=== PATIENT | female | born 1995 | race Caucasian/White ===

== ENCOUNTER 2016-06-25 19:39 | Emergency (ER) | payer SELFPAY ==
--- NOTE | 2016-06-25 19:53 | Emergency Department Record ---
History of Present Illness - General Chief complaint: ENT Stated complaint: ST/HEADACHE Time Seen by Provider: 06/25/16 19:45 Source: Patient Mode of Arrival: Ambulatory Limitations: No limitations - History of Present Illness Initial comments: 20 yo female presents to ED with a CC of sore throat symptoms that began earlier today. Patient denies fevers, chills, nausea, or vomiting symptoms. Patient does report mild headache symptoms as well, denies neck stiffness. Patient denies health problems at her baseline. MD complaint: Sore throat Onset/Timin -: Days(s) Location: L ear, Throat Severity: Mild Severity scale (1-10): 6 Quality: Other Consistency: Constant Improves with: None Worsens with: None Associated Symptoms: Sore throat - Related Data Previous Rx's Medication Instructions Recorded Amoxicillin 500 mg PO TID #30 capsule 06/25/16 Allergies Allergy/AdvReac Type Severity Reaction Status Date / Time No Known Drug Allergies Allergy Unverified 06/17/16 16:36 Travel Screening - Travel/Exposure Within Last 30 Days Have you traveled within the last 30 days?: No - Travel/Exposure Within Last Year Have you traveled outside the [place] in the last year?: No - Additonal Travel Details Have you been exposed to anyone with a communicable illness?: No - Travel Symptoms Symptom Screening: None Review of Systems Constitutional: Denies: Chills, Fever, Malaise, Night sweats Eyes: Denies: Eye discharge, Eye pain ENT: Reports: Throat pain. Denies: Congestion, Ear pain, Epistaxis Respiratory: Denies: Cough, Dyspnea Cardiovascular: Denies: Chest pain, Dyspnea on exertion Endocrine: Denies: Fatigue, Heat or cold intolerance Gastrointestinal: Denies: Abdominal pain, Nausea, Vomiting Musculoskeletal: Denies: Arthralgia, Back pain, Gout, Joint swelling Skin: Denies: Bruising, Change in color Neurological: Reports: Headache. Denies: Abnormal gait, Confusion, Seizure Psychiatric: Denies: Anxiety Hematological/Lymphatic: Denies: Anemia, Blood Clots Past Medical History - SOCIAL HISTORY Smoking Status: Current every day smoker Alcohol Use: None Drug Use: None - RESPIRATORY Hx Respiratory Disorders: No - CARDIOVASCULAR Hx Cardio Disorders: No - NEURO Hx Neuro Disorders: No - GI Hx GI Disorders: Yes Comment:: constipation - Hx Genitourinary Disorders: Yes Comment:: PCOS - ENDOCRINE Hx Endocrine Disorders: No - MUSCULOSKELETAL Hx Musculoskeletal Disorders: No - PSYCH Hx Psych Problems: No - HEMATOLOGY/ONCOLOGY Hx Hematology/Oncology Disorders: No Family Medical History Any Significant Family History?: No Hx Diabetes: Grandparents Physical Exam - General General Appearance: Alert, Oriented x3, Cooperative, No acute distress Limitations: No limitations - Head Head exam: Atraumatic, Normocephalic, Normal inspection Head exam detail: negative: Abrasion, Contusion, Cleaning's sign, General tenderness, Hematoma, Laceration - Eye Eye exam: Normal appearance. negative: Conjunctival injection, Periorbital swelling, Periorbital tenderness, Scleral icterus - ENT Ear exam: negative: Auricular hematoma, Auricular trauma Nasal Exam: negative: Active bleeding, Discharge, Dried blood, Foreign body Mouth exam: negative: Drooling, Laceration, Muffled voice, Tongue elevation Throat exam: Tonsillar exudate. negative: Tonsillar erythema, Tonsillomegaly, R peritonsillar mass, L peritonsillar mass - Neck Neck exam: Normal inspection. negative: Meningismus, Tenderness - Respiratory Respiratory exam: Normal lung sounds bilaterally. negative: Rales, Respiratory distress, Rhonchi, Stridor - Cardiovascular Cardiovascular Exam: Regular rate, Normal rhythm, Normal heart sounds - GI/Abdominal GI/Abdominal exam: Soft. negative: Rebound, Rigid, Tenderness - Rectal Rectal exam: Deferred - exam: Deferred - Extremities Extremities exam: Normal inspection. negative: Calf tenderness, Pedal edema, Tenderness - Back Back exam: Denies: CVA tenderness (R), CVA tenderness (L) - Neurological Neurological exam: Alert, Normal gait, Oriented X3 - Psychiatric Psychiatric exam: Normal affect, Normal mood - Skin Skin exam: Normal color. negative: Abrasion Type of lesion: negative: abrasion Course Vital Signs 06/25/16 19:46 Temperature 98.6 F Pulse Rate [ 86 Pulse Ox Probe] Respiratory 18 Rate Blood Pressure 116/82 [Left Arm] Pulse Ox 98 - Reevaluation(s) Reevaluation #1: 06/25/16 20:21 Rapid strep is negative. Will prescribe delayed antibiotic to be filled in 48 hours if patient's symptoms fail to improved, and the patient appears stable for discharge at this time. Disposition Disposition: Discharge Clinical Impression: Pharyngitis Qualifiers: Pharyngitis/tonsillitis etiology: unspecified etiology Qualified Code(s): J02.9 - Acute pharyngitis, unspecified Disposition: Home, Self-Care Condition: (2) Stable Instructions: Pharyngitis (ED) Additional Instructions: Return to ED if your symptoms worsen or if you have any concerns. Amoxicillin as directed. Follow-up with your family doctor in 3-5 days as directed. Prescriptions: Amoxicillin 500 mg PO TID #30 capsule Forms: Patient Portal Access Time of Disposition: 20:23
== END 2016-06-25 20:28 | disposition home or self-care (01) ==
LOC: ER 19:39
DX: J02.9 Acute pharyngitis, unspecified (principal)
CPT/HCPCS: 87880; 99282

== ENCOUNTER 2016-07-29 21:11 | Emergency (ER) | payer SELFPAY | END 2016-07-29 22:10 | disposition left against medical advice (07) | LOC: ER 21:11 | DX: Z53.20 Procedure and treatment not carried out because of patient's decision for unspecified reasons (principal) ==

== ENCOUNTER 2016-10-24 18:19 | Emergency (ER) | payer SELFPAY ==
[2016-10-24 19:15] LABS: BASO % 0.5 % (0-6); EOS % 0.5 % (0-6); GRAN % 59.7 % (47-80); HEMATOCRIT 39.5 % (35.0-47.0); HEMOGLOBIN 14.1 gm/dl (11.6-16.0); MEAN CORPUSCULAR HEMOGLOBIN 32.1 pg (27-33); MEAN CORPUSCULAR HGB CONC 35.7 g/dl (32-36); MEAN PLATELET VOLUME 9.5 fl (7.4-10.4); MONO % 10.3 % (0-9); PLATELET COUNT 271 K/uL (130-400); RED BLOOD COUNT 4.39 M/uL (3.80-5.40); RED CELL DISTRIBUTION WIDTH 12.5 % (11.5-14.5); WHITE BLOOD COUNT W/O DIFF 8.7 K/uL (4.2-12.2)
[2016-10-24] MEDS ORDERED: ONDANSETRON HCL IV 4 MG/2 ML VIAL IV ONE (19:20)
[2016-10-24] MEDS ORDERED: 0.9 % SODIUM CHLORIDE 1,000 ML BAG IV ONE (19:20)
[2016-10-24] MEDS ORDERED: HYDROMORPHONE HCL 1MG/ML **SYRINGE IVP ONE (19:23)
[2016-10-24 19:32] LABS: ALB/GLOB RATIO 1.9 (1.1-1.8); ALBUMIN 4.9 g/dL (4.0-5.0); ALKALINE PHOSPHATASE 51 U/L (35-104); ALT/SGPT 14 U/L (<33); AST/SGOT 22 U/L (10.0-35.0); BLOOD UREA NITROGEN 19.4 mg/dL (12.6-42.6); CREATININE 0.6 mg/dL (0.5-0.9); EST GLOMERULAR FILTRATION RATE > 60 mL/min; GLUCOSE,RANDOM 86 mg/dL (74-109); TOTAL PROTEIN 7.5 g/dL (6.6-8.7)
[2016-10-24 19:33] LABS: URINE APPEARANCE CLEAR; URINE BILIRUBIN NEGATIVE (NEGATIVE); URINE BLOOD NEGATIVE (NEGATIVE); URINE COLOR YELLOW; URINE GLUCOSE (UA) NEGATIVE (NEGATIVE); URINE KETONE NEGATIVE (NEGATIVE); URINE LEUKOCYTE ESTERASE NEGATIVE (NEGATIVE); URINE NITRITE NEGATIVE (NEGATIVE); URINE PROTEIN NEGATIVE (NEGATIVE); URINE UROBILINOGEN 0.2 E.U./dL (0.20 - 1.00)
[2016-10-24 19:40] LABS: HCG,QUALITATIVE URINE NEGATIVE (NEGATIVE)
[2016-10-24] MEDS ORDERED: KETOROLAC 30 MG/ML VIAL IVP ONE (20:19)
--- NOTE | 2016-10-24 20:31 | Emergency Department Record ---
History of Present Illness - General Chief Complaint: Abdominal Pain Stated Complaint: ABDOMINAL PAIN Time Seen by Provider: 10/24/16 19:12 Source: Patient Mode of Arrival: Ambulatory Limitations: No limitations - History of Present Illness Initial Comments: pt had a sudden onset of rlq pain 45min [employer]. pt was laying in bed when it started. pt has no n/v/c/d. no uti symptoms. pain is worse with walking. MD Complaint: Abdominal pain Onset/Timin -: Minutes(s) Location: RLQ Radiation: None Migration to: No migration Severity: Severe Quality: Other Consistency: Constant Improves With: Nothing Worsens With: Movement Associated Symptoms: Nausea, Vomiting - Related Data LMP Date: 10/11/16 LMP (females 10-50): other Patient : No Allergies Allergy/AdvReac Type Severity Reaction Status Date / Time No Known Drug Allergies Allergy Verified 10/24/16 19:04 Travel Screening - Travel/Exposure Within Last 30 Days Have you traveled within the last 30 days?: No - Travel/Exposure Within Last Year Have you traveled outside the [place] in the last year?: No - Additonal Travel Details Have you been exposed to anyone with a communicable illness?: No - Travel Symptoms Symptom Screening: None Review of Systems Reviewed: No additional complaints except as noted below Constitutional: Reports: As per HPI. Denies: Chills, Fever, Malaise, Night sweats, Weakness, Weight change Eyes: Reports: As per HPI. Denies: Eye discharge, Eye pain, Photophobia, Vision change ENT: Reports: As per HPI. Denies: Congestion, Dental pain, Ear pain, Epistaxis , Hearing loss, Throat pain Respiratory: Reports: As per HPI. Denies: Cough, Dyspnea, Hemoptysis, Stridor, Wheezes Cardiovascular: Reports: As per HPI. Denies: Arrhythmia, Chest pain, Dyspnea on exertion, Edema, Murmurs, Orthopnea, Palpitations, Paroxysmal nocturnal dyspnea, Rheumatic Fever, Syncope Endocrine: Reports: As per HPI. Denies: Fatigue, Heat or cold intolerance, Polydipsia, Polyuria Gastrointestinal: Reports: As per HPI. Denies: Abdominal pain, Constipation, Diarrhea, Hematemesis, Hematochezia, Melena, Nausea, Vomiting Genitourinary: Reports: As per HPI. Denies: Abnormal menses, Discharge, Dyspareunia, Dysuria, Frequency, Hematuria, Incontinence, Retention, Urgency Musculoskeletal: Reports: As per HPI. Denies: Arthralgia, Back pain, Gout, Joint swelling, Myalgia, Neck pain Skin: Reports: As per HPI. Denies: Bruising, Change in color, Change in hair/ nails, Lesions, Pruritus, Rash Neurological: Reports: As per HPI. Denies: Abnormal gait, Confusion, Headache, Numbness, Paresthesias, Seizure, Tingling, Tremors, Vertigo, Weakness Psychiatric: Reports: As per HPI. Denies: Anxiety, Auditory hallucinations, Depression, Homicidal thoughts, Suicidal thoughts, Visual hallucinations Hematological/Lymphatic: Reports: As per HPI. Denies: Anemia, Blood Clots, Easy bleeding, Easy bruising, Swollen glands Past Medical History - SOCIAL HISTORY Smoking Status: Current every day smoker Alcohol Use: Occasional Drug Use: None - RESPIRATORY Hx Respiratory Disorders: No - CARDIOVASCULAR Hx Cardio Disorders: No - NEURO Hx Neuro Disorders: No - GI Hx GI Disorders: Yes Comment:: constipation - Hx Genitourinary Disorders: Yes Comment:: PCOS - ENDOCRINE Hx Endocrine Disorders: No - MUSCULOSKELETAL Hx Musculoskeletal Disorders: No - PSYCH Hx Psych Problems: No - HEMATOLOGY/ONCOLOGY Hx Hematology/Oncology Disorders: No Family Medical History Any Significant Family History?: No Hx Diabetes: Grandparents Physical Exam - General General Appearance: Alert, Oriented x3, Cooperative, Mild distress - Head Head exam: Normal inspection - Eye Eye exam: Normal appearance, PERRL, EOMI Pupils: Normal accommodation - ENT ENT exam: Normal exam, Mucous membranes moist, Normal external ear exam, Normal orophraynx Ear exam: Normal external inspection. negative: External canal tenderness Nasal Exam: Normal inspection. negative: Discharge, Sinus tenderness Mouth exam: Normal external inspection, Tongue normal Teeth exam: Normal inspection. negative: Dental caries Throat exam: Normal inspection. negative: Tonsillar erythema, Tonsillar exudate - Neck Neck exam: Normal inspection, Full ROM. negative: Tenderness - Respiratory Respiratory exam: Normal lung sounds bilaterally. negative: Respiratory distress - Cardiovascular Cardiovascular Exam: Regular rate, Normal rhythm, Normal heart sounds - GI/Abdominal GI/Abdominal exam: Soft, Normal bowel sounds, Tenderness - Rectal Rectal exam: Deferred - exam: Deferred - Extremities Extremities exam: Normal inspection, Full ROM, Normal capillary refill. negative: Tenderness - Back Back exam: Reports: Normal inspection, Full ROM. Denies: Muscle spasm, Rash noted, Tenderness - Neurological Neurological exam: Alert, CN II-XII intact, Normal gait, Oriented X3 - Psychiatric Psychiatric exam: Normal affect, Normal mood - Skin Skin exam: Dry, Intact, Normal color, Warm Course Vital Signs 10/24/16 10/24/16 19:00 20:18 Temperature 99.0 F Pulse Rate 96 H Pulse Rate [ 72 Pulse Ox Probe] Respiratory 20 20 Rate Blood Pressure 121/84 Blood Pressure 118/72 [Left Arm] Pulse Ox 100 98 - Reevaluation(s) Reevaluation #1: 10/24/16 23:26 pts pain is improved but still present. ct shows 3.3 x 3.2 large complex mass w mod free fluid, hemorragic cyst vs tuboovarian abscess vs torsed ovary Medical Decision Making - Lab Data Result diagrams: 10/24/16 19:08 10/24/16 19:08 Lab Results 10/24/16 10/24/16 10/24/16 Range/Units 19:08 19:08 19:13 WBC 8.7 (4.2-12.2) K/uL RBC 4.39 (3.80-5.40) M/uL Hgb 14.1 (11.6-16.0) gm/dl Hct 39.5 (35.0-47.0) % MCV 90.0 (81-97) fl MCH 32.1 (27-33) pg MCHC 35.7 (32-36) g/dl RDW 12.5 (11.5-14.5) % Plt Count 271 (130-400) K/uL MPV 9.5 (7.4-10.4) fl Gran % 59.7 (47-80) % Lymphocytes % 29.0 (16-45) % Monocytes % 10.3 H (0-9) % Eosinophils % 0.5 (0-6) % Basophils % 0.5 (0-6) % Sodium 140 (136-145) mmol/L Potassium 3.8 (3.4-4.5) mmol/L Chloride 105 (98-107) mmol/L Carbon Dioxide 23.0 (22-29) mmol/L Anion Gap 12.0 (7-16) BUN 19.4 (12.6-42.6) mg/dL Creatinine 0.6 (0.5-0.9) mg/dL Estimated GFR > 60 mL/min Random Glucose 86 (74-109) mg/dL Calcium 9.2 (8.6-10.0) mg/dL Total Bilirubin 0.50 (0.2-1.0) mg/dL AST 22 (10.0-35.0) U/L ALT 14 (<33) U/L Alkaline Phosphatase 51 (35-104) U/L Total Protein 7.5 (6.6-8.7) g/dL Albumin 4.9 (4.0-5.0) g/dL Globulin 2.6 (1.4-4.8) gm/dL Albumin/Globulin Ratio 1.9 H (1.1-1.8) Urine Color Yellow Urine Appearance Clear Urine pH 6.5 (5.0-8.0) Ur Specific Earle 1.015 (1.002-1.030) Urine Protein Negative (NEGATIVE) Urine Glucose (UA) Negative (NEGATIVE) Urine Ketones Negative (NEGATIVE) Urine Blood Negative (NEGATIVE) Urine Nitrite Negative (NEGATIVE) Urine Bilirubin Negative (NEGATIVE) Urine Urobilinogen 0.2 (0.20 - 1.00) E.U./dL Ur Leukocyte Esterase Negative (NEGATIVE) Urine HCG, Qual Negative (NEGATIVE) Disposition Disposition: Transfer Clinical Impression: Ovarian mass, right Disposition: Acute Care Hospital Transfer Transfer To: [facility] Reason For Transfer: needs emergent us to evaluate for torsed ovary vs tubovarian abscess Accepting Physician: dr philip Time Discussed w/Accepting Physician: 23:26 Forms: Patient Portal Access Quality - Quality Measures Quality Measures: N/A - Blood Pressure Screening Does Patient Have Any of the Following: No Blood Pressure Classification: Pre-Hypertensive BP Reading Systolic Measurement: 121 Diastolic Measurement: 84 Screening for High Blood Pressure: < Pre-Hypertensive BP, F/U Documented > [ G8950] Pre-Hypertensive Follow-up Interventions: Follow-up with rescreen every year.
--- NOTE | 2016-10-25 08:36 | CT SCAN REPORT ---
EXAM: CT OF THE ABDOMEN AND PELVIS WITH CONTRAST HISTORY: SEVERE LOW ABDOMINAL PAIN. TECHNIQUE: Sequential axial images were obtained from the diaphragms through the ischiorectal fossa after intravenous and oral administration of 100 ml of Omnipaque 300 contrast material. Comparison: 06/30/13. FINDINGS: The visualized lung bases appear normal. The liver, gallbladder, pancreas, and spleen appear normal. The adrenal glands and kidneys appear normal. The small and large bowel appears normal. There is a large complex cystic lesion in the expected region of the right adnexa. This measures approximately 3.3 x 3.2 cm. There is a moderate amount of surrounding fluid. There is an IUD within the endometrium. Findings may represent a large hemorrhagic cyst, however, torsed ovary or tuboovarian abscess cannot be entirely excluded. Pelvic ultrasound is recommended for better evaluation. IMPRESSION: LARGE COMPLEX CYSTIC LESION IN THE EXPECTED REGION OF THE RIGHT OVARY. THIS MEASURES 3.2 X 3.3 CM. THERE IS A MODERATE AMOUNT OF SURROUNDING FLUID. FINDINGS MAY REPRESENT A HEMORRHAGIC CYST, HOWEVER, TORSED OVARY OR TUBOOVARIAN ABSCESS CANNOT BE ENTIRELY EXCLUDED. THERE IS AN IUD WITHIN THE ENDOMETRIUM. JOB NUMBER: [id number] MTDD
== END 2016-10-24 23:40 | disposition short-term general hospital (02) ==
LOC: ER 18:19
DX: N83.201 Unspecified ovarian cyst, right side (principal); R11.2 Nausea with vomiting, unspecified; R10.31 Right lower quadrant pain
CPT/HCPCS: 99285 ×2; 96374; 96375; 96361; 85025; 80053; 81003; 81025; 74177; Q9967; J1885; J2405; J1170; J7030

== ENCOUNTER 2017-10-14 13:55 | Emergency (ER) | payer OTHER ==
[2017-10-14] MEDS ORDERED: SODIUM CHLORIDE 0.9% 500 ML IV ONE (14:45)
[2017-10-14 15:06] LABS: BASO % 0.6 % (0-6); EOS % 3.1 % (0-6); GRAN % 68.1 % (47-80); HEMATOCRIT 40.5 % (35.0-47.0); HEMOGLOBIN 13.7 gm/dl (11.6-16.0); LYMPH % 19.5 % (16-45); MEAN CELL VOLUME 93.3 fl (81-97); MEAN CORPUSCULAR HEMOGLOBIN 31.6 pg (27-33); MEAN CORPUSCULAR HGB CONC 33.8 g/dl (32-36); MEAN PLATELET VOLUME 9.7 fl (7.4-10.4); MONO % 8.7 % (0-9); PLATELET COUNT 222 K/uL (130-400); RED BLOOD COUNT 4.34 M/uL (3.80-5.40); RED CELL DISTRIBUTION WIDTH 12.7 % (11.5-14.5); WHITE BLOOD COUNT W/O DIFF 6.8 K/uL (4.2-12.2)
[2017-10-14] MEDS ORDERED: KETOROLAC 30 MG/ML VIAL IVP ONE (15:09)
[2017-10-14 15:19] LABS: BLOOD UREA NITROGEN 12 mg/dL (6-20); CREATININE 0.7 mg/dL (0.5-0.9); EST GLOMERULAR FILTRATION RATE > 60 mL/min
--- NOTE | 2017-10-14 15:21 | Emergency Department Record ---
History of Present Illness - General Chief Complaint: Abdominal Pain Stated Complaint: ABDOMINAL/BACK PAIN Time Seen by Provider: 10/14/17 14:45 Mode of Arrival: Ambulatory - History of Present Illness Onset/Timin -: Days(s) Location: LLQ Radiation: None Migration to: No migration Severity: Severe Severity scale (1-10): 8 Quality: Sharp Consistency: Constant Improves With: Nothing Worsens With: Nothing Associated Symptoms: Nausea, Vomiting - Related Data LMP Date: 09/10/17 Patient : No Previous Rx's Medication Instructions Recorded Metronidazole [Flagyl] 500 mg PO BID 7 Days #14 tablet 10/14/17 Allergies Allergy/AdvReac Type Severity Reaction Status Date / Time No Known Drug Allergies Allergy Verified 10/14/17 14:20 Travel Screening - Travel/Exposure Within Last 30 Days Have you traveled within the last 30 days?: No Past Medical History - SOCIAL HISTORY Smoking Status: Current every day smoker Alcohol Use: None Drug Use: None - RESPIRATORY Hx Respiratory Disorders: No - CARDIOVASCULAR Hx Cardio Disorders: No - NEURO Hx Neuro Disorders: No - GI Hx GI Disorders: Yes Comment:: constipation - Hx Genitourinary Disorders: Yes Comment:: PCOS - ENDOCRINE Hx Endocrine Disorders: No - MUSCULOSKELETAL Hx Musculoskeletal Disorders: No - PSYCH Hx Psych Problems: No - HEMATOLOGY/ONCOLOGY Hx Hematology/Oncology Disorders: No Family Medical History Any Significant Family History?: Yes Hx Diabetes: Grandparents Physical Exam - General General Appearance: Alert, Oriented x3, Cooperative, Mild distress - Head Head exam: Atraumatic - Eye Eye exam: Normal appearance, PERRL - ENT ENT exam: Normal exam, Mucous membranes moist, Normal external ear exam, Normal orophraynx, TM's normal bilaterally - Neck Neck exam: Normal inspection. negative: Tenderness - Respiratory Respiratory exam: Normal lung sounds bilaterally. negative: Rhonchi, Wheezes - Cardiovascular Cardiovascular Exam: Regular rate, Normal rhythm, Normal heart sounds - GI/Abdominal GI/Abdominal exam: Soft, Normal bowel sounds, Guarding, Tenderness (LLQ). negative: Rebound - exam: Adnexal tenderness (L), Cervical discharge, cervical motion tenderness , Vaginal discharge. negative: Abnormal external exam, Adnexal mass (L), Adnexal mass (R), Adnexal tenderness (R), Vaginal bleeding - Extremities Extremities exam: Normal inspection. negative: Tenderness - Back Back exam: Reports: Normal inspection - Neurological Neurological exam: Alert, Normal gait, Oriented X3 - Psychiatric Psychiatric exam: Normal affect, Normal mood - Skin Skin exam: Normal color. negative: Rash Course Vital Signs 10/14/17 14:17 Temperature 98.2 F Pulse Rate 51 L Respiratory 20 Rate Blood Pressure 111/70 Pulse Ox 100 - Reevaluation(s) Reevaluation #1: 10/14/17 17:17 US neg for ovarian pathology. Pelvic with discharge and CMT. IM rocephine and po Zithro in ED. Home on Flagyl for Clue cells/BV Medical Decision Making - Lab Data Result diagrams: 10/14/17 15:00 10/14/17 15:00 Lab Results 10/14/17 10/14/17 Range/Units 15:00 15:00 WBC 6.8 (4.2-12.2) K/uL RBC 4.34 (3.80-5.40) M/uL Hgb 13.7 (11.6-16.0) gm/dl Hct 40.5 (35.0-47.0) % MCV 93.3 (81-97) fl MCH 31.6 (27-33) pg MCHC 33.8 (32-36) g/dl RDW 12.7 (11.5-14.5) % Plt Count 222 (130-400) K/uL MPV 9.7 (7.4-10.4) fl Gran % 68.1 (47-80) % Lymphocytes % 19.5 (16-45) % Monocytes % 8.7 (0-9) % Eosinophils % 3.1 (0-6) % Basophils % 0.6 (0-6) % Urine HCG, Qual Negative (NEGATIVE) Disposition Disposition: Discharge Clinical Impression: Pelvic pain, Bacterial vaginosis, Cervicitis Disposition: Home, Self-Care Condition: (1) Good Instructions: Cervicitis (ED), Sexually Transmitted Diseases (ED) Additional Instructions: Condoms with all contacts. Prescriptions: Metronidazole [Flagyl] 500 mg PO BID 7 Days #14 tablet Forms: Patient Portal Access Quality - Quality Measures Quality Measures: N/A - Blood Pressure Screening Does Patient Have Any of the Following: No Blood Pressure Classification: Normal BP Reading Systolic Measurement: 111 Diastolic Measurement: 70 Screening for High Blood Pressure: < Normal BP, F/U Not Required > [G3508]
[2017-10-14 15:22] LABS: GLUCOSE,RANDOM 88 mg/dL (74-109)
[2017-10-14] MEDS ORDERED: AZITHROMYCIN 500 MG TABLET PO ONE (17:16)
[2017-10-14] MEDS ORDERED: CEFTRIAXONE 250 MG VIAL IM ONE (17:16)
[2017-10-14] MEDS ORDERED: HYDROCODONE/APAP 5/325MG TABLET PO ONE (17:16)
[2017-10-16 00:44] LABS: GC SPECIMEN TYPE Vaginal
--- NOTE | 2017-10-17 09:29 | ULTRASOUND REPORT ---
EXAM: PELVIC ULTRASOUND WITH TRANSVAGINAL HISTORY: LEFT SIDED PELVIC PAIN SINCE YESTERDAY. PREVIOUS HISTORY OF OVARIAN CYSTS. TECHNIQUE: Sonographic evaluation of the pelvis was performed using transabdominal and transvaginal probes. Comparison: Previous CT scan of the abdomen and pelvis dated 10/24/16. FINDINGS: TRANSABDOMINAL PELVIC ULTRASOUND: The uterus is anteverted in position and normal in size measuring 7.6 x 3 x 3.9 cm. The endometrium is normal measuring 5 mm. The myometrium is unremarkable. The right ovary is normal in appearance and size measuring 2.8 x 1.5 x 1.6 cm. The left ovary measures 3.9 x 1.8 x 3.3 cm. A small amount of free fluid is present within the pelvis adjacent to the left ovary. Mild free fluid is also present within the posterior cul-de-sac and just superior to the uterus. TRANSVAGINAL PELVIC ULTRASOUND: There is a tiny amount of nonspecific fluid within the endocervical canal. The endometrium is normal measuring 6 mm. The myometrium is unremarkable. There are multiple small follicles within both ovaries. The right ovary measures 3.5 x 1.6 x 2.7 cm and the left ovary measures 3.4 x 1.6 x 3.1 cm. There is no dominant follicle or ovarian mass. A small amount of free fluid is present within the pelvis. Duplex Doppler ultrasound was performed to assess for ovarian torsion. Color Doppler images demonstrate symmetric flow within both ovaries. Intraovarian spectral venous and arterial waveforms of both ovaries demonstrate symmetric flow with unremarkable uncorrected velocities. There is no ovarian torsion. IMPRESSION: 1. NORMAL UTERUS AND OVARIES. SEVERAL SMALL FUNCTIONAL FOLLICLES ARE PRESENT WITHIN EACH OVARY. 2. NO TORSION. 3. FREE FLUID WITHIN THE POSTERIOR CUL-DE-SAC WHICH IS LIKELY PHYSIOLOGIC. JOB NUMBER: [id number] [facility]
== END 2017-10-14 17:48 | disposition home or self-care (01) ==
LOC: ER 13:55
DX: N76.0 Acute vaginitis (principal); R11.2 Nausea with vomiting, unspecified; R10.2 Pelvic and perineal pain; F17.210 Nicotine dependence, cigarettes, uncomplicated
CPT/HCPCS: 99284 ×2; 96374; 96372; 96361; 85025; 80048; 81025; 76856; 76830; Q0111; J1885; J0696; 87210

== ENCOUNTER 2017-12-29 16:27 | Emergency (ER) | payer OTHER ==
[2017-12-29 17:19] LABS: BASO % 0.7 % (0-6); GRAN % 56.1 % (47-80); HEMATOCRIT 37.5 % (35.0-47.0); HEMOGLOBIN 12.8 gm/dl (11.6-16.0); MEAN CELL VOLUME 92.4 fl (81-97); MEAN CORPUSCULAR HEMOGLOBIN 31.5 pg (27-33); MEAN CORPUSCULAR HGB CONC 34.1 g/dl (32-36); MONO % 7.2 % (0-9); PLATELET COUNT 238 K/uL (130-400); RED BLOOD COUNT 4.06 M/uL (3.80-5.40)
[2017-12-29 17:21] LABS: URINE APPEARANCE CLEAR; URINE BILIRUBIN NEGATIVE (NEGATIVE); URINE BLOOD NEGATIVE (NEGATIVE); URINE COLOR YELLOW; URINE GLUCOSE (UA) NEGATIVE (NEGATIVE); URINE KETONE NEGATIVE (NEGATIVE); URINE LEUKOCYTE ESTERASE NEGATIVE (NEGATIVE); URINE NITRITE NEGATIVE (NEGATIVE); URINE PROTEIN NEGATIVE (NEGATIVE); URINE UROBILINOGEN 0.2 E.U./dL (0.20 - 1.00)
[2017-12-29 17:27] LABS: BLOOD UREA NITROGEN 10 mg/dL (6-20); CREATININE 0.7 mg/dL (0.5-0.9); EST GLOMERULAR FILTRATION RATE > 60 mL/min
[2017-12-29 17:30] LABS: GLUCOSE,RANDOM 84 mg/dL (74-109)
[2017-12-29] MEDS ORDERED: KETOROLAC 30 MG/ML VIAL IVP ONE (17:46)
--- NOTE | 2017-12-29 17:46 | Emergency Department Record ---
History of Present Illness - General Chief Complaint: Abdominal Pain Stated Complaint: PELVIC PAIN Time Seen by Provider: 12/29/17 16:55 Source: Patient Mode of Arrival: Ambulatory Limitations: No limitations - History of Present Illness Initial Comments: pt was at work working on a truck when someone slammed the door of the truck on her lower abd/pelvis. she is having pain in her pelvis and lower abdomen MD Complaint: Other (pelvic pain) Onset/Timin -: Hour(s) Location: Suprapubic Radiation: None Severity: Severe Severity scale (1-10): 10 Quality: Sharp Consistency: Constant Improves With: Nothing Worsens With: Nothing Associated Symptoms: Denies other symptoms - Related Data LMP (females 10-50): 1 month ago Patient : No Home Medications Medication Instructions Recorded Confirmed Last Taken No Home Med [NO HOME MEDS] 12/29/17 12/29/17 Unknown Allergies Allergy/AdvReac Type Severity Reaction Status Date / Time No Known Drug Allergies Allergy Verified 12/29/17 16:50 Travel Screening - Travel/Exposure Within Last 30 Days Have you traveled within the last 30 days?: No Review of Systems Reviewed: No additional complaints except as noted below Constitutional: Reports: As per HPI. Denies: Chills, Fever, Malaise, Night sweats, Weakness, Weight change Eyes: Reports: As per HPI. Denies: Eye discharge, Eye pain, Photophobia, Vision change ENT: Reports: As per HPI. Denies: Congestion, Dental pain, Ear pain, Epistaxis , Hearing loss, Throat pain Respiratory: Reports: As per HPI. Denies: Cough, Dyspnea, Hemoptysis, Stridor, Wheezes Cardiovascular: Reports: As per HPI. Denies: Arrhythmia, Chest pain, Dyspnea on exertion, Edema, Murmurs, Orthopnea, Palpitations, Paroxysmal nocturnal dyspnea, Rheumatic Fever, Syncope Endocrine: Reports: As per HPI. Denies: Fatigue, Heat or cold intolerance, Polydipsia, Polyuria Gastrointestinal: Reports: As per HPI, Abdominal pain. Denies: Constipation, Diarrhea, Hematemesis, Hematochezia, Melena, Nausea, Vomiting Genitourinary: Reports: As per HPI. Denies: Abnormal menses, Discharge, Dyspareunia, Dysuria, Frequency, Hematuria, Incontinence, Retention, Urgency Musculoskeletal: Reports: As per HPI, Other. Denies: Arthralgia, Back pain, Gout, Joint swelling, Myalgia, Neck pain Skin: Reports: As per HPI. Denies: Bruising, Change in color, Change in hair/ nails, Lesions, Pruritus, Rash Neurological: Reports: As per HPI. Denies: Abnormal gait, Confusion, Headache, Numbness, Paresthesias, Seizure, Tingling, Tremors, Vertigo, Weakness Psychiatric: Reports: As per HPI. Denies: Anxiety, Auditory hallucinations, Depression, Homicidal thoughts, Suicidal thoughts, Visual hallucinations Hematological/Lymphatic: Reports: As per HPI. Denies: Anemia, Blood Clots, Easy bleeding, Easy bruising, Swollen glands Past Medical History - SOCIAL HISTORY Smoking Status: Current every day smoker Alcohol Use: Occasional Drug Use: None - RESPIRATORY Hx Respiratory Disorders: No - CARDIOVASCULAR Hx Cardio Disorders: No - NEURO Hx Neuro Disorders: No - GI Hx GI Disorders: Yes Comment:: constipation - Hx Genitourinary Disorders: Yes Comment:: PCOS - ENDOCRINE Hx Endocrine Disorders: No - MUSCULOSKELETAL Hx Musculoskeletal Disorders: No - PSYCH Hx Psych Problems: No - HEMATOLOGY/ONCOLOGY Hx Hematology/Oncology Disorders: No Family Medical History Any Significant Family History?: Yes Hx Diabetes: Grandparents Physical Exam - General General Appearance: Alert, Oriented x3, Cooperative, Mild distress - Head Head exam: Normal inspection - Eye Eye exam: Normal appearance, PERRL, EOMI Pupils: Normal accommodation - ENT ENT exam: Normal exam, Mucous membranes moist, Normal external ear exam, Normal orophraynx Ear exam: Normal external inspection. negative: External canal tenderness Nasal Exam: Normal inspection. negative: Discharge, Sinus tenderness Mouth exam: Normal external inspection, Tongue normal Teeth exam: Normal inspection. negative: Dental caries Throat exam: Normal inspection. negative: Tonsillar erythema, Tonsillar exudate - Neck Neck exam: Normal inspection, Full ROM. negative: Tenderness - Respiratory Respiratory exam: Normal lung sounds bilaterally. negative: Respiratory distress - Cardiovascular Cardiovascular Exam: Regular rate, Normal rhythm, Normal heart sounds - GI/Abdominal GI/Abdominal exam: Soft, Normal bowel sounds, Tenderness (siprapubic) - Rectal Rectal exam: Deferred - exam: Deferred - Extremities Extremities exam: Normal inspection, Full ROM, Normal capillary refill, Tenderness (over pelvis) - Back Back exam: Reports: Normal inspection, Full ROM. Denies: Muscle spasm, Rash noted, Tenderness - Neurological Neurological exam: Alert, CN II-XII intact, Normal gait, Oriented X3 - Psychiatric Psychiatric exam: Normal affect, Normal mood - Skin Skin exam: Dry, Intact, Normal color, Warm Course Vital Signs 12/29/17 16:45 Temperature 98.9 F Pulse Rate 82 Respiratory 20 Rate Blood Pressure 109/53 Pulse Ox 100 - Reevaluation(s) Reevaluation #1: 12/29/17 18:[address] arellano pending ct results Medical Decision Making - Lab Data Result diagrams: 12/29/17 17:10 12/29/17 17:10 Lab Results 12/29/17 12/29/17 12/29/17 Range/Units 17:10 17:10 17:10 WBC 7.0 (4.2-12.2) K/uL RBC 4.06 (3.80-5.40) M/uL Hgb 12.8 (11.6-16.0) gm/dl Hct 37.5 (35.0-47.0) % MCV 92.4 (81-97) fl MCH 31.5 (27-33) pg MCHC 34.1 (32-36) g/dl RDW 12.0 (11.5-14.5) % Plt Count 238 (130-400) K/uL MPV 10.0 (7.4-10.4) fl Gran % 56.1 (47-80) % Lymphocytes % 35.0 (16-45) % Monocytes % 7.2 (0-9) % Eosinophils % 1.0 (0-6) % Basophils % 0.7 (0-6) % Sodium 141 (136-145) mmol/L Potassium 3.6 (3.4-4.5) mmol/L Chloride 104 (98-107) mmol/L Carbon Dioxide 24.0 (22-29) mmol/L Anion Gap 13.0 (7-16) BUN 10 (6-20) mg/dL Creatinine 0.7 (0.5-0.9) mg/dL Estimated GFR > 60 mL/min Random Glucose 84 (74-109) mg/dL Calcium 9.2 (8.6-10.0) mg/dL Urine Color Yellow Urine Appearance Clear Urine pH 6.0 (5.0-8.0) Ur Specific [place] >= 1.030 (1.002-1.030) Urine Protein Negative (NEGATIVE) Urine Glucose (UA) Negative (NEGATIVE) Urine Ketones Negative (NEGATIVE) Urine Blood Negative (NEGATIVE) Urine Nitrite Negative (NEGATIVE) Urine Bilirubin Negative (NEGATIVE) Urine Urobilinogen 0.2 (0.20 - 1.00) E.U./dL Ur Leukocyte Esterase Negative (NEGATIVE) Urine HCG, Qual (NEGATIVE) 12/29/17 Range/Units 17:10 WBC (4.2-12.2) K/uL RBC (3.80-5.40) M/uL Hgb (11.6-16.0) gm/dl Hct (35.0-47.0) % MCV (81-97) fl MCH (27-33) pg MCHC (32-36) g/dl RDW (11.5-14.5) % Plt Count (130-400) K/uL MPV (7.4-10.4) fl Gran % (47-80) % Lymphocytes % (16-45) % Monocytes % (0-9) % Eosinophils % (0-6) % Basophils % (0-6) % Sodium (136-145) mmol/L Potassium (3.4-4.5) mmol/L Chloride (98-107) mmol/L Carbon Dioxide (22-29) mmol/L Anion Gap (7-16) BUN (6-20) mg/dL Creatinine (0.5-0.9) mg/dL Estimated GFR mL/min Random Glucose (74-109) mg/dL Calcium (8.6-10.0) mg/dL Urine Color Urine Appearance Urine pH (5.0-8.0) Ur Specific [place] (1.002-1.030) Urine Protein (NEGATIVE) Urine Glucose (UA) (NEGATIVE) Urine Ketones (NEGATIVE) Urine Blood (NEGATIVE) Urine Nitrite (NEGATIVE) Urine Bilirubin (NEGATIVE) Urine Urobilinogen (0.20 - 1.00) E.U./dL Ur Leukocyte Esterase (NEGATIVE) Urine HCG, Qual Negative (NEGATIVE) Disposition Forms: Patient Portal Access Quality - Quality Measures Quality Measures: N/A - Blood Pressure Screening Does Patient Have Any of the Following: No Blood Pressure Classification: Normal BP Reading Systolic Measurement: 109 Diastolic Measurement: 53 Screening for High Blood Pressure: < Normal BP, F/U Not Required > [G8783]
--- NOTE | 2017-12-29 19:35 | Emergency Department Record ---
History of Present Illness - General Chief Complaint: Abdominal Pain Stated Complaint: PELVIC PAIN Time Seen by Provider: 12/29/17 16:55 Source: Patient Mode of Arrival: Ambulatory Limitations: No limitations - History of Present Illness MD Complaint: Other (pelvic pain) Onset/Timin -: Hour(s) Location: Suprapubic Radiation: None Severity: Severe Severity scale (1-10): 10 Quality: Sharp Consistency: Constant Improves With: Nothing Worsens With: Nothing Associated Symptoms: Denies other symptoms - Related Data LMP (females 10-50): 1 month ago Patient : No Home Medications Medication Instructions Recorded Confirmed Last Taken No Home Med [NO HOME MEDS] 12/29/17 12/29/17 Unknown Allergies Allergy/AdvReac Type Severity Reaction Status Date / Time No Known Drug Allergies Allergy Verified 12/29/17 16:50 Travel Screening - Travel/Exposure Within Last 30 Days Have you traveled within the last 30 days?: No Review of Systems Constitutional: Reports: As per HPI. Denies: Chills, Fever, Malaise, Night sweats, Weakness, Weight change Eyes: Reports: As per HPI. Denies: Eye discharge, Eye pain, Photophobia, Vision change ENT: Reports: As per HPI. Denies: Congestion, Dental pain, Ear pain, Epistaxis , Hearing loss, Throat pain Respiratory: Reports: As per HPI. Denies: Cough, Dyspnea, Hemoptysis, Stridor, Wheezes Cardiovascular: Reports: As per HPI. Denies: Arrhythmia, Chest pain, Dyspnea on exertion, Edema, Murmurs, Orthopnea, Palpitations, Paroxysmal nocturnal dyspnea, Rheumatic Fever, Syncope Endocrine: Reports: As per HPI. Denies: Fatigue, Heat or cold intolerance, Polydipsia, Polyuria Gastrointestinal: Reports: As per HPI, Abdominal pain. Denies: Constipation, Diarrhea, Hematemesis, Hematochezia, Melena, Nausea, Vomiting Genitourinary: Reports: As per HPI. Denies: Abnormal menses, Discharge, Dyspareunia, Dysuria, Frequency, Hematuria, Incontinence, Retention, Urgency Musculoskeletal: Reports: As per HPI, Other. Denies: Arthralgia, Back pain, Gout, Joint swelling, Myalgia, Neck pain Skin: Reports: As per HPI. Denies: Bruising, Change in color, Change in hair/ nails, Lesions, Pruritus, Rash Neurological: Reports: As per HPI. Denies: Abnormal gait, Confusion, Headache, Numbness, Paresthesias, Seizure, Tingling, Tremors, Vertigo, Weakness Psychiatric: Reports: As per HPI. Denies: Anxiety, Auditory hallucinations, Depression, Homicidal thoughts, Suicidal thoughts, Visual hallucinations Hematological/Lymphatic: Reports: As per HPI. Denies: Anemia, Blood Clots, Easy bleeding, Easy bruising, Swollen glands Past Medical History - SOCIAL HISTORY Smoking Status: Current every day smoker Alcohol Use: Occasional Drug Use: None - RESPIRATORY Hx Respiratory Disorders: No - CARDIOVASCULAR Hx Cardio Disorders: No - NEURO Hx Neuro Disorders: No - GI Hx GI Disorders: Yes Comment:: constipation - Hx Genitourinary Disorders: Yes Comment:: PCOS - ENDOCRINE Hx Endocrine Disorders: No - MUSCULOSKELETAL Hx Musculoskeletal Disorders: No - PSYCH Hx Psych Problems: No - HEMATOLOGY/ONCOLOGY Hx Hematology/Oncology Disorders: No Family Medical History Any Significant Family History?: Yes Hx Diabetes: Grandparents Physical Exam - General Limitations: No limitations Course Vital Signs 12/29/17 16:45 Temperature 98.9 F Pulse Rate 82 Respiratory 20 Rate Blood Pressure 109/53 Pulse Ox 100 - Reevaluation(s) Reevaluation #1: 12/29/17 19:32 Assumed care from previous provider, please see previous provider's note for HPI and physical examination. CT Pelvis: No acute traumatic injury Patient was updated on all results, reports that she just feels sore. All questions were answered, and the patient appears stable for discharge at this time. Medical Decision Making - Lab Data Result diagrams: 12/29/17 17:10 12/29/17 17:10 Lab Results 12/29/17 12/29/17 12/29/17 Range/Units 17:10 17:10 17:10 WBC 7.0 (4.2-12.2) K/uL RBC 4.06 (3.80-5.40) M/uL Hgb 12.8 (11.6-16.0) gm/dl Hct 37.5 (35.0-47.0) % MCV 92.4 (81-97) fl MCH 31.5 (27-33) pg MCHC 34.1 (32-36) g/dl RDW 12.0 (11.5-14.5) % Plt Count 238 (130-400) K/uL MPV 10.0 (7.4-10.4) fl Gran % 56.1 (47-80) % Lymphocytes % 35.0 (16-45) % Monocytes % 7.2 (0-9) % Eosinophils % 1.0 (0-6) % Basophils % 0.7 (0-6) % Sodium 141 (136-145) mmol/L Potassium 3.6 (3.4-4.5) mmol/L Chloride 104 (98-107) mmol/L Carbon Dioxide 24.0 (22-29) mmol/L Anion Gap 13.0 (7-16) BUN 10 (6-20) mg/dL Creatinine 0.7 (0.5-0.9) mg/dL Estimated GFR > 60 mL/min Random Glucose 84 (74-109) mg/dL Calcium 9.2 (8.6-10.0) mg/dL Urine Color Yellow Urine Appearance Clear Urine pH 6.0 (5.0-8.0) Ur Specific [place] >= 1.030 (1.002-1.030) Urine Protein Negative (NEGATIVE) Urine Glucose (UA) Negative (NEGATIVE) Urine Ketones Negative (NEGATIVE) Urine Blood Negative (NEGATIVE) Urine Nitrite Negative (NEGATIVE) Urine Bilirubin Negative (NEGATIVE) Urine Urobilinogen 0.2 (0.20 - 1.00) E.U./dL Ur Leukocyte Esterase Negative (NEGATIVE) Urine HCG, Qual (NEGATIVE) 12/29/17 Range/Units 17:10 WBC (4.2-12.2) K/uL RBC (3.80-5.40) M/uL Hgb (11.6-16.0) gm/dl Hct (35.0-47.0) % MCV (81-97) fl MCH (27-33) pg MCHC (32-36) g/dl RDW (11.5-14.5) % Plt Count (130-400) K/uL MPV (7.4-10.4) fl Gran % (47-80) % Lymphocytes % (16-45) % Monocytes % (0-9) % Eosinophils % (0-6) % Basophils % (0-6) % Sodium (136-145) mmol/L Potassium (3.4-4.5) mmol/L Chloride (98-107) mmol/L Carbon Dioxide (22-29) mmol/L Anion Gap (7-16) BUN (6-20) mg/dL Creatinine (0.5-0.9) mg/dL Estimated GFR mL/min Random Glucose (74-109) mg/dL Calcium (8.6-10.0) mg/dL Urine Color Urine Appearance Urine pH (5.0-8.0) Ur Specific [place] (1.002-1.030) Urine Protein (NEGATIVE) Urine Glucose (UA) (NEGATIVE) Urine Ketones (NEGATIVE) Urine Blood (NEGATIVE) Urine Nitrite (NEGATIVE) Urine Bilirubin (NEGATIVE) Urine Urobilinogen (0.20 - 1.00) E.U./dL Ur Leukocyte Esterase (NEGATIVE) Urine HCG, Qual Negative (NEGATIVE) Disposition Disposition: Discharge Clinical Impression: Pelvic contusion Qualifiers: Encounter type: initial encounter Qualified Code(s): S30.0XXA - Contusion of lower back and pelvis, initial encounter Disposition: Home, Self-Care Condition: (2) Stable Instructions: Contusion in Adults (ED) Additional Instructions: Return to ED if your symptoms worsen or if you have any concerns. Ibuprofen as directed. Follow-up with your family doctor in 3-5 days as directed. Forms: Patient Portal Access Time of Disposition: 19:35 Quality - Quality Measures Quality Measures: N/A - Blood Pressure Screening Does Patient Have Any of the Following: No Blood Pressure Classification: Normal BP Reading Systolic Measurement: 108 Diastolic Measurement: 78 Screening for High Blood Pressure: < Normal BP, F/U Not Required > [G8783]
--- NOTE | 2017-12-30 12:30 | CT SCAN REPORT ---
EXAM: CT OF THE PELVIS WITH IV CONTRAST HISTORY: INJURY TO THE LOWER PELVIC AREA WITH SUBSEQUENT PAIN. TECHNIQUE: CT of the pelvis with IV contrast was obtained. 100 ml of Omnipaque 300 were administered intravenously without apparent complications. Comparison: CT abdomen and pelvis, 10/24/16. FINDINGS: The visualized bowel is normal in caliber. The appendix is normal. The bladder is unremarkable. There is no pelvic mass. There are no acute pelvic fractures or destructive osseous lesions. There is very minimal free fluid that is within the limits of physiologic for a female of reproductive age. IMPRESSION: NO ACUTE ABNORMALITY OF THE PELVIS. JOB NUMBER: [id number] MTDD
== END 2017-12-29 19:42 | disposition home or self-care (01) ==
LOC: ER 16:27
DX: S30.0XXA Contusion of lower back and pelvis, initial encounter (principal); W22.8XXA Striking against or struck by other objects, initial encounter; Y92.63 Factory as the place of occurrence of the external cause; Y99.0 Civilian activity done for income or pay; F17.210 Nicotine dependence, cigarettes, uncomplicated
CPT/HCPCS: 99284 ×2; 96374; 85025; 80048; 81003; 81025; 72193; Q9967; J1885

== ENCOUNTER 2019-01-20 12:28 | Emergency (ER) | payer SELFPAY ==
[2019-01-20] MEDS ORDERED: 0.9 % SODIUM CHLORIDE 1,000 ML BAG IV ONE (12:42)
[2019-01-20] MEDS ORDERED: LORAZEPAM 2 MG/ML VIAL IV ONE (12:42)
[2019-01-20 13:12] LABS: ABSOLUTE NEUTROPHIL COUNT 3.48; BASO % 0.6 % (0-6); EOS % 2.6 % (0-6); GRAN % 56.2 % (47-80); HEMATOCRIT 40.8 % (35.0-47.0); HEMOGLOBIN 13.7 gm/dl (11.6-16.0); LYMPH % 30.4 % (16-45); MEAN CELL VOLUME 94.2 fl (81-97); MEAN CORPUSCULAR HEMOGLOBIN 31.6 pg (27-33); MEAN CORPUSCULAR HGB CONC 33.6 g/dl (32-36); MONO % 10.2 % (0-9); PLATELET COUNT 272 K/uL (130-400); RED BLOOD COUNT 4.33 M/uL (3.80-5.40); RED CELL DISTRIBUTION WIDTH 12.7 % (11.5-14.5); WHITE BLOOD COUNT W/O DIFF 6.2 K/uL (4.2-12.2)
[2019-01-20 13:22] LABS: BLOOD UREA NITROGEN 12 mg/dL (6-20); CREATININE 0.7 mg/dL (0.5-0.9); EST GLOMERULAR FILTRATION RATE > 60 mL/min
--- NOTE | 2019-01-20 13:23 | Emergency Department Record ---
History of Present Illness - General Chief Complaint: Chest Pain Stated Complaint: CHEST PAIN Time Seen by Provider: 01/20/19 12:34 Source: Patient, RN notes reviewed Mode of Arrival: Ambulatory - History of Present Illness Initial Comments: substernal chest pain and more right sided which has been on and off for 2 weeks with a productive cough. Patient states she drinks wine and denies illegal drugs and admits to using marijuana. No indigestion. No sweating and she said she is under lots of stress her Dad had a car accident 2 months ago Onset/Timin -: Week(s) Pain Location: Right chest Pain Radiation: None Severity: Moderate Severity scale (1-10): 7 Quality: Heaviness Consistency: Getting worse Improves With: Rest Worsens With: Inspiration Anginal Symptoms: Nausea Treatments Prior to Arrival: None - Related Data On Oral Contraceptives: No Previous Rx's Medication Instructions Recorded Naproxen [Naprosyn] 500 mg PO BID #30 tablet 01/20/19 Allergies Allergy/AdvReac Type Severity Reaction Status Date / Time No Known Drug Allergies Allergy Verified 01/20/19 13:10 Travel Screening - Travel/Exposure Within Last 30 Days Have you traveled within the last 30 days?: No Review of Systems Reviewed: No additional complaints except as noted below Constitutional: Reports: As per HPI. Denies: Chills, Fever, Malaise, Night sw eats, Weakness, Weight change Eyes: Reports: As per HPI. Denies: Eye discharge, Eye pain, Photophobia, Vision change ENT: Reports: As per HPI. Denies: Congestion, Dental pain, Ear pain, Epistaxis, Hearing loss, Throat pain Respiratory: Reports: As per HPI, Cough. Denies: Dyspnea, Hemoptysis, Stridor, Wheezes Cardiovascular: Reports: As per HPI, Chest pain. Denies: Arrhythmia, Dyspnea on exertion, Edema, Murmurs, Orthopnea, Palpitations, Paroxysmal nocturnal dyspnea, Rheumatic Fever, Syncope Endocrine: Reports: As per HPI. Denies: Fatigue, Heat or cold intolerance, Polydipsia, Polyuria Gastrointestinal: Reports: As per HPI. Denies: Abdominal pain, Constipation, Diarrhea, Hematemesis, Hematochezia, Melena, Nausea, Vomiting Genitourinary: Reports: As per HPI. Denies: Abnormal menses, Discharge, Dyspareunia, Dysuria, Frequency, Hematuria, Incontinence, Retention, Urgency Musculoskeletal: Reports: As per HPI. Denies: Arthralgia, Back pain, Gout, Joint swelling, Myalgia, Neck pain Skin: Reports: As per HPI. Denies: Bruising, Change in color, Change in hair /nails, Lesions, Pruritus, Rash Neurological: Reports: As per HPI. Denies: Abnormal gait, Confusion, Headache, Numbness, Paresthesias, Seizure, Tingling, Tremors, Vertigo, Weakness Psychiatric: Reports: As per HPI. Denies: Anxiety, Auditory hallucinations, Depression, Homicidal thoughts, Suicidal thoughts, Visual hallucinations Hematological/Lymphatic: Reports: As per HPI. Denies: Anemia, Blood Clots, Easy bleeding, Easy bruising, Swollen glands Past Medical History - SOCIAL HISTORY Smoking Status: Current every day smoker Alcohol Use: Occasional Drug Use: Occasional Drug Use Detail:: Marijuana - RESPIRATORY Hx Respiratory Disorders: No - CARDIOVASCULAR Hx Cardio Disorders: No - NEURO Hx Neuro Disorders: No - GI Hx GI Disorders: Yes Comment:: constipation - Hx Genitourinary Disorders: Yes Comment:: PCOS - ENDOCRINE Hx Endocrine Disorders: No - MUSCULOSKELETAL Hx Musculoskeletal Disorders: No - PSYCH Hx Psych Problems: No - HEMATOLOGY/ONCOLOGY Hx Hematology/Oncology Disorders: No Family Medical History Any Significant Family History?: Yes Hx Diabetes: Grandparents Physical Exam - General General Appearance: Alert, Oriented x3, Cooperative, No acute distress - Head Head exam: Normal inspection - Eye Eye exam: Normal appearance, PERRL Pupils: Normal accommodation - ENT ENT exam: Normal exam, Mucous membranes moist, Normal external ear exam, Normal orophraynx, TM's normal bilaterally Ear exam: Normal external inspection. negative: External canal tenderness Nasal Exam: Normal inspection. negative: Discharge, Sinus tenderness Mouth exam: Normal external inspection, Tongue normal Teeth exam: Normal inspection. negative: Dental caries Throat exam: Normal inspection. negative: Tonsillar erythema, Tonsillar exudate - Neck Neck exam: Normal inspection, Full ROM. negative: Tenderness - Respiratory Respiratory exam: Normal lung sounds bilaterally. negative: Respiratory distre ss - Cardiovascular Cardiovascular Exam: Regular rate, Normal rhythm, Normal heart sounds - GI/Abdominal GI/Abdominal exam: Soft, Normal bowel sounds. negative: Tenderness - Rectal Rectal exam: Deferred - exam: Deferred - Extremities Extremities exam: Normal inspection, Full ROM, Normal capillary refill. negative: Tenderness - Back Back exam: Reports: Normal inspection, Full ROM. Denies: Muscle spasm, Rash noted, Tenderness - Neurological Neurological exam: Alert, Normal gait, Oriented X3, Reflexes normal - Psychiatric Psychiatric exam: Normal affect, Normal mood - Skin Skin exam: Dry, Intact, Normal color, Warm Course Vital Signs 01/20/19 12:48 Temperature 98.0 F Pulse Rate [ 61 Right] Respiratory 20 Rate Blood Pressure 120/77 [Left Arm] Pulse Ox 98 - Reevaluation(s) Reevaluation #1: patient admits to cocaine abuse once 4 days ago 01/20/19 16:03 Medical Decision Making - Data Complexity MDM Data: Labs Ordered and/or Reviewed (trop neg, cocaine positive in the urine and marijuana positive), EKG Ordered and/or Reviewed (NSR, no acute changes) - Lab Data Result diagrams: 01/20/19 13:05 01/20/19 13:05 Lab Results 01/20/19 01/20/19 Range/Units 13:05 13:05 WBC 6.2 (4.2-12.2) K/uL RBC 4.33 (3.80-5.40) M/uL Hgb 13.7 (11.6-16.0) gm/dl Hct 40.8 (35.0-47.0) % MCV 94.2 (81-97) fl MCH 31.6 (27-33) pg MCHC 33.6 (32-36) g/dl RDW 12.7 (11.5-14.5) % Plt Count 272 (130-400) K/uL MPV 9.0 (7.4-10.4) fl Gran % 56.2 (47-80) % Lymphocytes % 30.4 (16-45) % Monocytes % 10.2 H (0-9) % Eosinophils % 2.6 (0-6) % Basophils % 0.6 (0-6) % Absolute Neutrophils 3.48 Calcium 8.9 (8.6-10.0) mg/dL Disposition Clinical Impression: Chest wall pain, Cocaine abuse URI (upper respiratory infection) Qualifiers: URI type: unspecified viral URI Qualified Code(s): J06.9 - Acute upper respiratory infection, unspecified Condition: (1) Good Instructions: Chest Wall Pain (ED) Additional Instructions: follow up with family DR in one week 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
[2019-01-20 13:25] LABS: GLUCOSE,RANDOM 90 mg/dL (74-109)
[2019-01-20 13:28] LABS: URINE APPEARANCE CLEAR; URINE BILIRUBIN NEGATIVE (NEGATIVE); URINE BLOOD NEGATIVE (NEGATIVE); URINE COLOR YELLOW; URINE GLUCOSE (UA) NEGATIVE (NEGATIVE); URINE KETONE NEGATIVE (NEGATIVE); URINE LEUKOCYTE ESTERASE NEGATIVE (NEGATIVE); URINE NITRITE NEGATIVE (NEGATIVE); URINE PROTEIN NEGATIVE (NEGATIVE); URINE UROBILINOGEN 0.2 E.U./dL (0.20 - 1.00)
[2019-01-20 13:30] LABS: HCG,QUALITATIVE URINE NEGATIVE (NEGATIVE)
[2019-01-20 13:33] LABS: AMPHETAMINE SCREEN URINE NOT DETECTED; BARBITURATE SCREEN URINE NOT DETECTED; BENZODIAZEPINE SCREEN URINE NOT DETECTED; COCAINE SCREEN URINE DETECTED; METHADONE SCREEN URINE NOT DETECTED; METHAMPHETAMINE SCREEN NOT DETECTED; OPIATE SCREEN URINE NOT DETECTED; OXYCODONE SCREEN URINE NOT DETECTED; PHENCYCLIDINE SCREEN URINE NOT DETECTED; PROPOXYPHENE SCREEN URINE NOT DETECTED; THC SCREEN URINE DETECTED; TRICYCLIC ANTIDEPRESSANT SCRN NOT DETECTED
--- NOTE | 2019-01-20 14:16 | RADIOLOGY REPORT ---
EXAMINATION: Two View Chest Radiographs EXAM DATE: 01/20/2019 2:10 PM TECHNIQUE: Frontal and lateral views INDICATION: chest pain COMPARISON: None ENCOUNTER: Not applicable FINDINGS: The heart, mediastinum, and pulmonary vasculature are normal. No lung consolidation or pleural effu sions are present. No pneumothorax. IMPRESSION: Normal chest. Dictated by: Travis Bishop DO on 01/20/2019 2:13 PM. .
== END 2019-01-20 16:35 | disposition home or self-care (01) ==
LOC: ER 12:28
DX: R07.89 Other chest pain (principal); J06.9 Acute upper respiratory infection, unspecified; R11.0 Nausea; F17.210 Nicotine dependence, cigarettes, uncomplicated; F14.10 Cocaine abuse, uncomplicated
CPT/HCPCS: 71046; 80048; 80305; 81003; 81025; 84484; 85025; 85730; 93005; 93010; 96374; 99284; J7030